=== PATIENT | male | born 1970 | race Caucasian/White ===

== ENCOUNTER 2019-11-18 01:14 | Emergency (ER) | payer SELFPAY ==
[~2019-11-18] VITALS: Ht 167.6 cm; Wt 83.4 kg
[2019-11-18] MEDS ORDERED: ONDANSETRON ODT 4 MG ONE (01:45)
[2019-11-18] MEDS ORDERED: PLEASE ENTER ALLERGIES MC SCH (02:00)
[2019-11-18] MEDS ORDERED: ONDANSETRON ODT 4 MG PO ONE (02:00)
[2019-11-18 02:14] LABS: MEAN CORPUSCULAR HGB CONC 34.3 g/dL (33.2-36.2); MEAN CORPUSCULAR VOLUME 93.2 fL (81-97); RED BLOOD COUNT 4.81 x10^6/uL (4.38-5.82); RED CELL DISTRIBUTION WIDTH 12.6 % (9.4-14.8)
[2019-11-18 02:16] LABS: ALANINE AMINOTRANSFERASE 100 U/L (12-78); ALBUMIN 3.4 g/dL (3.4-5.0); ANION GAP 5 mmol/L (5-15); CALCIUM 8.4 mg/dL (8.5-10.1); CHLORIDE 104 mmol/L (98-107); CREATININE 1.07 mg/dL (0.7-1.3)
[2019-11-18 02:21] LABS: ALKALINE PHOSPHATASE 81 U/L (45-117); TOTAL PROTEIN 6.9 g/dL (6.4-8.2); TROPONIN I < 0.015 ng/mL (0.000-0.045)
[2019-11-18 02:22] LABS: MICROSCOPIC NOT IND
[2019-11-18 02:28] LABS: BASOPHILS # (AUTO) 0.04 x10^3/uL (0-0.1); BASOPHILS % (AUTO) 0 % (0-1); EOSINOPHILS # (AUTO) 0.06 x10^3/uL (0-0.4); EOSINOPHILS % (AUTO) 1 % (1-7); LYMPHOCYTES % (AUTO) 7 % (22-44); MD SCAN; MEAN PLATELET VOLUME 10.4 fL (7.4-10.4); MONOCYTES # (AUTO) 0.56 x10^3/uL (0.2-0.8); MONOCYTES % (AUTO) 5 % (2-9); NEUTROPHILS # (AUTO) 11.01 x10^3/uL (1.8-6.8); NEUTROPHILS % (AUTO) 88 % (42-75); PLATELET COUNT 57 x10^3/uL (130-400)
[2019-11-18] MEDS ORDERED: ACETAMINOPHEN 500 MG TABLET PO ONE (03:30)
[2019-11-18] MEDS ORDERED: LORazepam 1MG TABLET PO ONE (03:30)
[2019-11-18] MEDS ORDERED: ACETAMINOPHEN 500 MG TABLET ONE (03:39)
[2019-11-18] MEDS ORDERED: LORazepam 1MG TABLET ONE (03:39)
[2019-11-18 03:44] VITALS: BP 108/60
[2019-11-18 04:51] LABS: AMPHETAMINE SCREEN, URINE Positive (Negative); BARBITURATE SCREEN, URINE Negative (Negative); BENZODIAZEPINE SCREEN, URINE Negative (Negative); CANNABINOID SCREEN, URINE Negative (Negative); COCAINE SCREEN, URINE Negative (Negative); METHADONE SCREEN, URINE Negative (Negative); OPIATE SCREEN, URINE Negative (Negative)
== END 2019-11-18 06:28 | disposition home or self-care (01) ==
LOC: ED 06:17
DX: J20.9 Acute bronchitis, unspecified (principal); R07.89 Other chest pain; R51 Headache; R11.0 Nausea; F10.10 Alcohol abuse, uncomplicated; F15.10 Other stimulant abuse, uncomplicated; F17.210 Nicotine dependence, cigarettes, uncomplicated; Z72.9 Problem related to lifestyle, unspecified; Y90.9 Presence of alcohol in blood, level not specified
CPT/HCPCS: 36415; 70450; 71046; 80053; 80307; 81003; 83690; 84484; 85025; 93005; 99285; 99406; Q0162